=== PATIENT | female | born 1985 | race Caucasian/White ===

== ENCOUNTER → 2023-04-03 | Outpatient (CLI) | payer BC ==
--- NOTE | 2023-04-03 07:50 | MM ---
Reason for Exam: Clinical finding. Baseline mammogram. Indicated Problems: Lump or thickening of the left side for 4 Day(s). Patient History: Menarche at age 12. Patient has no children. Maternal aunt had breast cancer at or over age 50. Last menstrual period: 03/23/2023 Risk Values: Sonia 5 year model risk: 0.4%. NCI Lifetime model risk: 12.4%. Prior Study Comparison: Patient's first Mammogram. Tissue Density: There are scattered fibroglandular densities. Findings: Analyzed By CAD. No significant mass, suspicious microcalcification, or other discrete abnormality is seen. Bilateral nipple markers. Overall Assessment: Incomplete: need additional imaging evaluation, BI-RAD 0 Management: Diagnostic Breast Ultrasound of the left breast. For the position palpated abnormality medially. Electronically signed and approved by: Eileen Zendejas M.D. Radiologist
--- NOTE | 2023-04-03 08:31 | USB ---
Reason for Exam: Clinical finding. Indicated Problems: Lump or thickening of the left side. Patient History: Menarche at age 12. Patient has no children. Maternal aunt had breast cancer at or over age 50. Risk Values: Sonia 5 year model risk: 0.4%. NCI Lifetime model risk: 12.4%. Technique: Method: Targeted. Doppler: Color. Patient Position: Supine. Prior Study Comparison: Baseline Ultrasound. No prior studies available for comparison. Findings: The upper inner quadrant of the left breast, the axilla of the left breast and the retroareolar of the left breast were scanned. Targeted ultrasound left breast upper-outer quadrant 9:00 to 12:00 at the patient directed physician palpated site. There is no solid or cystic lesion. Subareolar region and axilla were also scanned. No axillary adenopathy. Overall Assessment: Negative, BI-RAD 1 Management: Screening Mammogram of both breasts at age 42. Unless there is clinical indication to start sooner. Further clinical management of any suspicious palpable abnormalities. Patient can continue monthly self breast exams. Results were given to the patient verbally at the time of exam. Electronically signed and approved by: Eileen Zendejas M.D. Radiologist
== END | disposition home or self-care (01) ==
LOC: RADMAMWWP 07:21
PROVIDERS: ATTEND Family Medicine
DX: N60.02 Solitary cyst of left breast (principal); Z80.3 Family history of malignant neoplasm of breast
CPT/HCPCS: 77062; 77066